=== PATIENT | male | born 2005 ===

== ENCOUNTER 2025-03-24 18:47 | Emergency (ER) | payer SELFPAY ==
[~2025-03-24] VITALS: Ht 152.4 cm; Wt 45.4 kg
[2025-03-24] MEDS ORDERED: IBUP600 PO (21:50)
[2025-03-24] MEDS ORDERED: ACET500 PO (21:50)
== END 2025-03-24 22:22 | disposition home or self-care (01) ==
LOC: ER 18:47
DX: S09.90XA Unspecified injury of head, initial encounter (principal); Z65.8 Other specified problems related to psychosocial circumstances; W22.8XXA Striking against or struck by other objects, initial encounter
CPT/HCPCS: 70450; 99283-25; A9270

== ENCOUNTER 2025-04-18 01:49 | Emergency (ER) | payer SELFPAY ==
[~2025-04-18] VITALS: Ht 144.8 cm; Wt 40.8 kg
[~2025-04-18 01:49] MED LIST: ACET500 PO; IBUP600 PO
[2025-04-18] MEDS ORDERED: Ketorolac Tromethamine 30mg Vial IM ONE (02:55)
[2025-04-18] MEDS ORDERED: Robaxin750 MG PO (02:56)
== END 2025-04-18 06:15 | disposition home or self-care (01) ==
LOC: ER 01:49
DX: S16.1XXA Strain of muscle, fascia and tendon at neck level, initial encounter (principal); S00.83XA Contusion of other part of head, initial encounter; Z79.899 Other long term (current) drug therapy; Y09 Assault by unspecified means
CPT/HCPCS: 70450; 72125; 99284-25